=== PATIENT | male | born 1985 | race Caucasian/White ===

== ENCOUNTER 2024-08-10 11:03 | Emergency (ER) | payer SELFPAY ==
[~2024-08-10] VITALS: Ht 177.8 cm; Wt 75.0 kg
[~2024-08-10 11:03] MED LIST: METFORMIN PO
[2024-08-10 11:07] VITALS: BP 176/82; PULSE 94; RESP 16; TEMP 98.2; O2SAT 99
[2024-08-10 12:32] LABS: HEMATOCRIT. 47.8 % (42.0-52.0); MEAN CORPUSCULAR HGB CONC 33.5 g/dL (31.0-37.0); MEAN CORPUSCULAR VOLUME 95.5 fL (80.0-94.0); MEAN PLATELET VOLUME 8.5 fl (7.4-10.4); PLATELET 228 x1000/uL (130-400); RED BLOOD CELL COUNT 5.01 mill/uL (4.7-6.1); RED CELL DISTRIBUTION WIDTH 13.3 % (11.6-14.6); WHITE BLOOD COUNT 16.5 x1000/uL (4.5-11.0)
[2024-08-10 12:36] LABS: CHLORIDE 101 mEq/L (98-107); POTASSIUM 4.7 mEq/L (3.5-5.1); SODIUM 133 mEq/L (136-145)
[2024-08-10 12:37] LABS: CARBON DIOXIDE 23 mEq/L (21-32)
[2024-08-10 12:41] LABS: DIFFERENTIAL COMMENT 1
[2024-08-10 12:42] LABS: CREATININE 1.3 mg/dL (0.6-1.3)
[2024-08-10 12:43] LABS: UREA NITROGEN BLOOD 24 mg/dL (9-23)
[2024-08-10 12:44] LABS: ALANINE AMINOTRANSFERASE 21 IU/L (10-49); ALBUMIN 4.6 g/dL (3.2-4.8); ASPARTATE AMINOTRANSFERASE 18 IU/L (<34)
[2024-08-10 12:45] LABS: PROTEIN TOTAL 7.6 g/dL (6.0-8.3)
[2024-08-10 12:53] LABS: GLUCOSE 466 mg/dL (70-105)
[2024-08-10] MEDS: KETOROLAC 30MG/ML VIAL IV STA (13:05)
[2024-08-10] MEDS: SODIUM CHLORIDE 0.9% 1,000 ML IV ONE (13:06)
[2024-08-10] MEDS: ONDANSETRON HCL 4MG/2ML INJ IV STA (13:06)
[2024-08-10] MEDS: FAMOTIDINE 20MG/2ML VIAL IV ONE (13:06)
[2024-08-10 13:35] LABS: PLATELET ESTIMATE NORMAL
== END 2024-08-10 16:00 | disposition home or self-care (01) ==
LOC: ER 11:03
DX: R11.2 Nausea with vomiting, unspecified (principal); E10.65 Type 1 diabetes mellitus with hyperglycemia; F12.10 Cannabis abuse, uncomplicated
CPT/HCPCS: 80053; 82010; 83690; 85025; 36415; 96361; 96374; 96375; 99284; J3490; J1885; J2405; J7030; Z7610 ×4

== ENCOUNTER 2025-08-24 19:35 | Emergency (ER) | payer MEDICAID, OTHER ==
[~2025-08-24] VITALS: Ht 177.8 cm; Wt 88.0 kg
[2025-08-24 19:50] VITALS: O2SAT 99
[2025-08-24] MEDS: DILTIAZEM HCL 5MG/ML 5ML VIAL IV ONE (20:26)
[2025-08-24 20:29] LABS: BASOPHILS % 0.8 % (0.0-2.0); EOSINOPHILS % 9.3 % (0.0-5.0); HEMATOCRIT. 40.8 % (42.0-52.0); HEMOGLOBIN. 14.0 g/dL (14.0-18.0); LYMPHOCYTES % 27.2 % (20.0-50.0); MEAN PLATELET VOLUME 8.1 fl (7.4-10.4); MONOCYTES % 7.9 % (2.0-8.0); NEUTROPHILS % 54.8 % (40.0-76.0); PLATELET 224 x1000/uL (130-400); RED BLOOD CELL COUNT 4.42 mill/uL (4.7-6.1); RED CELL DISTRIBUTION WIDTH 13.5 % (11.6-14.6)
[2025-08-24 20:40] LABS: CREATININE 1.0 mg/dL (0.6-1.3)
[2025-08-24 20:41] LABS: PROTEIN TOTAL 6.4 g/dL (6.0-8.3); TROPONIN I HIGH SENSITIVITY 8 ng/L (3.0-53); UREA NITROGEN BLOOD 13 mg/dL (9-23)
[2025-08-24 20:42] LABS: ASPARTATE AMINOTRANSFERASE 17 IU/L (<34)
[2025-08-24 20:43] LABS: BILIRUBIN DIRECT 0.2 mg/dL (<=3.0); BILIRUBIN TOTAL 0.4 mg/dL (0.1-1.0)
[2025-08-24] MEDS: SODIUM CHLORIDE 0.9% 1,000 ML IV ONE (21:00)
[2025-08-24] MEDS ORDERED: DILTIAZEM HCL 5MG/ML 5ML VIAL IV ONE (23:00)
[2025-08-24] MEDS ORDERED: SODIUM CHLORIDE 0.9% 1,000 ML IV ONE (23:00)
[2025-08-24 23:45] VITALS: TEMP 36.8; O2SAT 99
[2025-08-25 00:24] VITALS: BP 96/66; PULSE 104; RESP 19; TEMP 98.24
[2025-08-25] MEDS ORDERED: ACETAMINOPHEN 325MG TABLET PO PRN ×2 (00:45)
[2025-08-25] MEDS ORDERED: IPRATROPIUM/ALBUTEROL 0.5-3(2.5)MG/3ML NEB HHN PRN (00:45)
[2025-08-25] MEDS ORDERED: ONDANSETRON HCL 4MG/2ML INJ IV PRN (00:45)
[2025-08-25] MEDS ORDERED: DOCUSATE SODIUM 100MG CAPSULE PO PRN (00:45)
[2025-08-25] MEDS ORDERED: CLONIDINE 0.1MG TABLET PO PRN (00:45)
[2025-08-25] MEDS ORDERED: MAGNESIUM 4 G PREMIX 100 ML IV NR (01:00)
== END 2025-08-25 01:13 | disposition left against medical advice (07) ==
LOC: ER 19:35 → EDBEDREQ 08-25 00:05 → ER 08-25 01:13 → CMPBEDREQ 08-25 07:48
DX: I48.91 Unspecified atrial fibrillation (principal); E11.9 Type 2 diabetes mellitus without complications; F12.90 Cannabis use, unspecified, uncomplicated; Z79.84 Long term (current) use of oral hypoglycemic drugs; Z82.3 Family history of stroke
CPT/HCPCS: 99285; 96374; 96361; 71045; 80076; 80048; 83880; 83735; 85025; 85379; 84484; 36415; 93005; J3490; J7030; J3475